=== PATIENT | male | born 1955 | race Caucasian/White ===

== ENCOUNTER 2023-02-24 10:04 | Observation (INO) | payer MEDICARE, OTHER ==
[2023-02-24] MEDS ORDERED: ONDANSETRON 4 MG/2 ML VIAL IVP STA (10:09)
[2023-02-24] MEDS ORDERED: DIPH,PERTUS(ACELL)TETVAC-LF 0.5 ML VIAL IM ONE (10:09)
[2023-02-24] MEDS ORDERED: SODIUM CHLORIDE 0.9% 500 ML 500 ML IV STA (10:09)
--- NOTE | 2023-02-24 10:18 | ED ---
General Adult HPI - General Stated complaint: Fall, on Thinner Time Seen by Provider: 02/24/23 10:04 Source: patient, RN notes reviewed, old records reviewed - History of Present Illness Initial comments: This is a 67-year-old male who presents emergency Department with a past medical history significant for seizures. Patient states he also had an aortic aneurysm repair at some point. Patient family told EMS that the patient was in his room and they heard a a loud bang at 7 AM they did not going to check on him however at 9:00 when he went in to check on them he was standing in the middle the room with a blanket around him and acting confused. They did notice a little bit of blood on the posterior left aspect of his head. Patient has slowly come around to the point where he is alert and oriented 4 at the scene he was alert and oriented 1. Patient also urinated on himself. Patient has no complaints at this time except for being cold. Patient is been nauseated and dry heaving on the way in per EMS. Patient to get [address] on the way in. - Related Data Home Medications Medication Instructions Recorded Confirmed LORazepam [Ativan] 0.5 mg PO TID PRN 12/13/14 12/13/14 Omeprazole [PriLOSEC] 10 mg PO AC-BRKFST 12/13/14 12/13/14 Zolpidem [Ambien] 5 mg PO HS PRN 12/13/14 12/13/14 lisinopriL [Zestril] 10 mg PO DAILY 12/13/14 12/13/14 Previous Rx's Medication Instructions Recorded Famotidine [Pepcid] 20 mg PO BID #30 tablet 12/13/14 hydrOXYzine HCL [Atarax] 25 mg PO TID PRN #30 tab 12/13/14 predniSONE 50 mg PO DAILY #5 tab 12/13/14 Allergies Allergy/AdvReac Type Severity Reaction Status Date / Time lisinopril Allergy Anaphylaxis Verified 12/13/14 11:34 Review of Systems ROS Statement: Those systems with pertinent positive or pertinent negative responses have been documented in the HPI. ROS Other: All systems not noted in ROS Statement are negative. Past Medical History Past Medical History: GERD/Reflux, Hypertension History of Any Multi-Drug Resistant Organisms: None Reported Past Surgical History: No Surgical Hx Reported Past Psychological History: Anxiety Past Alcohol Use History: Daily Past Drug Use History: Marijuana General Exam - General Exam Comments Initial Comments: GENERAL: Patient is well-developed and well-nourished. Patient is nontoxic and well- hydrated and is in mild distress. ENT: Neck is soft and supple. No significant lymphadenopathy is noted. Oropharynx is clear. Moist mucous membranes. Neck has full range of motion without eliciting any pain. EYES: The sclera were anicteric and conjunctiva were pink and moist. Extraocular movements were intact and pupils were equal round and reactive to light. Eyelids were unremarkable. PULMONARY: Unlabored respirations. Good breath sounds bilaterally. No audible rales rhonchi or wheezing was noted. CARDIOVASCULAR: There is a regular rate and rhythm without any murmurs gallops or rubs. ABDOMEN Soft and nontender with normal bowel sounds. SKIN: There is a 1 cm laceration of the left occipital region of the scalp NEUROLOGIC: Patient is alert and oriented x3. Cranial nerves II through XII are grossly intact. Motor and sensory are also intact. Normal speech, volume and content. Symmetrical smile. MUSCULOSKELETAL: Normal extremities with adequate strength and full range of motion. LYMPHATICS: No significant lymphadenopathy is noted PSYCHIATRIC: Normal psychiatric evaluation. Course Vital Signs 02/24/23 02/24/23 10:05 10:27 Temperature 98.8 F Pulse Rate 70 73 Respiratory 18 18 Rate Blood Pressure 138/75 124/52 O2 Sat by Pulse 93 L 93 L Oximetry Medical Decision Making - Medical Decision Making EKG was interpreted by myself EKG shows a sinus rhythm at 70 bpm MA interval 238 QRS is 90 QT interval 395 QTC is 4:15. Patient's EKG shows no ST segment elevation or depression. Was pt. sent in by a medical professional or institution (, PA, DISTRIBUTION MANAGER, urgent care, hospital, or shelter...) When possible be specific @ -No Did you speak to anyone other than the patient for history (EMS, parent, family, police, friend...)? What history was obtained from this source @ -EMS and gave all the history Did you review nursing and triage notes (agree or disagree)? Why? @ -I reviewed and agree with nursing and triage notes Were old charts reviewed (outside hosp., previous admission, EMS record, old EKG, old radiological studies, urgent care reports/EKG's, shelter records)? Report findings @ -No old charts were reviewed Differential Diagnosis (chest pain, altered mental status, abdominal pain women, abdominal pain men, vaginal bleeding, weakness, fever, dyspnea, syncope, headache, dizziness, GI bleed, back pain, seizure, CVA, palpatations, mental health, musculoskeletal)? @ -Differential Seizure: Recurrent seizure disorder, febrile seizure, alcohol withdrawal, stimulants, meningitis, encephalitis, intercranial hemorrhage, intracranial tumor, stroke, eclampsia, thyrotoxicosis, hypocalcemia, hyponatremia, hypernatremia, hypomagnesemia, psychogenic, this is not meant to be an all-inclusive list. EKG interpreted by me (3pts min.). @ -As above X-rays interpreted by me (1pt min.). @ -None done CT interpreted by me (1pt min.). @ -None done U/S interpreted by me (1pt. min.). @ -None done What testing was considered but not performed or refused? (CT, X-rays, U/S, labs)? Why? @ -None What meds were considered but not given or refused? Why? @ -None Did you discuss the management of the patient with other professionals (professionals i.e. , PA, DISTRIBUTION MANAGER, lab, RT, psych nurse, social insurance administrator, geoscience specialist, teacher, hospital admissions officer, caser up)? Give summary @ -I spoke with a [place] hospitalist and they agreed to admit the patient Was smoking cessation discussed for >3mins.? @ -No Was critical care preformed (if so, how long)? @ -No Were there social determinants of health that impacted care today? How? (Homelessness, low income, unemployed, alcoholism, drug addiction, tra nsportation, low edu. Level, literacy, decrease access to med. care, correction, rehab)? @ -No Was there de-escalation of care discussed even if they declined (Discuss DNR or withdrawal of care, Hospice)? DNR status @ -No What co-morbidities impacted this encounter? (DM, HTN, Smoking, COPD, CAD, Cancer, CVA, ARF, Chemo, Hep., AIDS, mental health diagnosis, sleep apnea, morbid obesity)? @ -None Was patient admitted / discharged? Hospital course, mention meds given and route, prescriptions, significant lab abnormalities, going to OR and other pertinent info. @ -Patient remained a little post ictal not quite back to his baseline per his and so was determined that we will keep the patient consult neurology and monitor the patient. Patient continued to be nauseous disease day. Patient did receive Zofran. Patient also received 1500 of Keppra. Patient is not going to be admitted as a trauma because when the showed up she indicated to us that he had a seizure though he did fall patient had no traumatic injury except for a little abrasion on the scalp. The reason for admission will be prolonged postictal state Undiagnosed new problem with uncertain prognosis? @ -No Drug Therapy requiring intensive monitoring for toxicity (Heparin, Nitro, Insulin, Cardizem)? @ -No Were any procedures done? @ -No Diagnosis/symptom? @ -Seizure Acute, or Chronic, or Acute on Chronic? @ -Acute Uncomplicated (without systemic symptoms) or Complicated (systemic symptoms)? @ -Complicated Side effects of treatment? @ -No Exacerbation, Progression, or Severe Exacerbation? @ -No Poses a threat to life or bodily function? How? (Chest pain, [place], [place], pneumonia, PE, COPD, DKA, ARF, appy, cholecystitis, CVA, Diverticulitis, Homicidal, Suicidal, threat to staff... and all critical care pts) @ -No Diagnosis/symptom? @ -Prolonged postictal Acute, or Chronic, or Acute on Chronic? @ -Acute Uncomplicated (without systemic symptoms) or Complicated (systemic symptoms)? @ -Complicated Side effects of treatment? @ -none Exacerbation, Progression, or Severe Exacerbation] @ -no Poses a threat to life or bodily function? @ -no - Lab Data Result diagrams: 02/24/23 10:42 02/24/23 10:42 Lab Results 02/24/23 02/24/23 02/24/23 Range/Units 10:15 10:21 10:42 WBC 17.1 H (3.8-10.6) k/uL RBC 4.32 (4.30-5.90) m/uL Hgb 14.0 (13.0-17.5) gm/dL Hct 41.7 (39.0-53.0) % MCV 96.7 (80.0-100.0) fL MCH 32.4 (25.0-35.0) pg MCHC 33.5 (31.0-37.0) g/dL RDW 14.3 (11.5-15.5) % Plt Count 217 (150-450) k/uL MPV 8.0 Neutrophils % 89 % Lymphocytes % 6 % Monocytes % 5 % Eosinophils % 0 % Basophils % 0 % Neutrophils # 15.1 H (1.3-7.7) k/uL Lymphocytes # 1.0 (1.0-4.8) k/uL Monocytes # 0.8 (0-1.0) k/uL Eosinophils # 0.0 (0-0.7) k/uL Basophils # 0.0 (0-0.2) k/uL PT (9.0-12.0) sec INR (<1.2) APTT (22.0-30.0) sec Sodium (137-145) mmol/L Potassium (3.5-5.1) mmol/L Chloride (98-107) mmol/L Carbon Dioxide (22-30) mmol/L Anion Gap mmol/L BUN (9-20) mg/dL Creatinine (0.66-1.25) mg/dL Est GFR (CKD-EPI)AfAm (>60 ml/min/1.73 sqM) Est GFR (CKD-EPI)NonAf (>60 ml/min/1.73 sqM) Glucose (74-99) mg/dL Calcium (8.4-10.2) mg/dL Total Bilirubin (0.2-1.3) mg/dL AST (17-59) U/L ALT (4-49) U/L Alkaline Phosphatase (38-126) U/L Troponin I (0.000-0.034) ng/mL Total Protein (6.3-8.2) g/dL Albumin (3.5-5.0) g/dL Serum Alcohol mg/dL Blood Type O Positive Blood Type Confirm O Positive Blood Type Recheck No Previous Record Bld Type Recheck Status CABO Indicated Antibody Screen NEGATIVE Spec Expiration Date 02/27/2023231402/24/23 02/24/23 02/24/23 Range/Units 10:42 10:42 10:42 WBC (3.8-10.6) k/uL RBC (4.30-5.90) m/uL Hgb (13.0-17.5) gm/dL Hct (39.0-53.0) % MCV (80.0-100.0) fL MCH (25.0-35.0) pg MCHC (31.0-37.0) g/dL RDW (11.5-15.5) % Plt Count (150-450) k/uL MPV Neutrophils % % Lymphocytes % % Monocytes % % Eosinophils % % Basophils % % Neutrophils # (1.3-7.7) k/uL Lymphocytes # (1.0-4.8) k/uL Monocytes # (0-1.0) k/uL Eosinophils # (0-0.7) k/uL Basophils # (0-0.2) k/uL PT 10.5 (9.0-12.0) sec INR 1.0 (<1.2) APTT 21.7 L (22.0-30.0) sec Sodium 142 (137-145) mmol/L Potassium 4.0 (3.5-5.1) mmol/L Chloride 106 (98-107) mmol/L Carbon Dioxide 18 L (22-30) mmol/L Anion Gap 18 mmol/L BUN 13 (9-20) mg/dL Creatinine 1.04 (0.66-1.25) mg/dL Est GFR (CKD-EPI)AfAm 87 (>60 ml/min/1.73 sqM) Est GFR (CKD-EPI)NonAf 75 (>60 ml/min/1.73 sqM) Glucose 163 H (74-99) mg/dL Calcium 9.0 (8.4-10.2) mg/dL Total Bilirubin 0.7 (0.2-1.3) mg/dL AST 33 (17-59) U/L ALT 33 (4-49) U/L Alkaline Phosphatase 103 (38-126) U/L Troponin I <0.012 (0.000-0.034) ng/mL Total Protein 8.0 (6.3-8.2) g/dL Albumin 4.6 (3.5-5.0) g/dL Serum Alcohol <10 mg/dL Blood Type Blood Type Confirm Blood Type Recheck Bld Type Recheck Status Antibody Screen Spec Expiration Date Disposition Clinical Impression: Seizure, Postictal state Disposition: ADMITTED IP TO THIS [facility] Time of Disposition: 13:11
--- NOTE | 2023-02-24 10:26 | XR ---
EXAMINATION TYPE: XR pelvis AP view DATE OF EXAM: 02/24/2023 10:18 AM INDICATION: Patient age:Male; 67 years old; Reason for study: Trauma; [facility]. COMPARISON: None TECHNIQUE: The pelvis was examined in a single projection. FINDINGS: There is no evidence of fracture or dislocation. There is no soft tissue abnormality. No a bnormal calcifications are present. Multilevel degenerative changes of the lower spine. IMPRESSION: No acute osseous pathology.
--- NOTE | 2023-02-24 10:26 | XR ---
EXAMINATION TYPE: XR chest 1V portable DATE OF EXAM: 02/24/2023 10:18 AM COMPARISON: None TECHNIQUE: XR chest 1V portable Portable AP radiograph of the chest. CLINICAL INDICATION:Male, 67 years old with history of trauma; FINDINGS: Lungs/Pleura: There is no evidence of pleural effusion, focal consolidation, or pneumothorax. Pulmonary vascularity: Unremarkable. Heart/mediastinum: Cardiomediastinal silhouette is enlarged. Musculoskeletal: No acute osseous pathology. Midline sternotomy wires are noted. IMPRESSION: 1. No acute cardiopulmonary disease/process. 2. Mild cardiomegaly.
[2023-02-24 10:49] LABS: Basophils % (A) 0 %; Eosinophils % (A) 0 %; HCT 41.7 % (39.0-53.0); Lymphocytes % (A) 6 %; MCH 32.4 pg (25.0-35.0); MCHC 33.5 g/dL (31.0-37.0); MCV 96.7 fL (80.0-100.0); Monocytes # (A) 0.8 k/uL (0-1.0); Monocytes % (A) 5 %; Neutrophils # (A) 15.1 k/uL (1.3-7.7); Neutrophils % (A) 89 %; Platelet Count 217 k/uL (150-450); RBC 4.32 m/uL (4.30-5.90); RDW 14.3 % (11.5-15.5); WBC 17.1 k/uL (3.8-10.6)
--- NOTE | 2023-02-24 11:00 | CT ---
EXAMINATION TYPE: CT brain cspine wo con CT DLP: 1647.6 mGycm, Automated exposure control for dose reduction was used. DATE OF EXAM: 02/24/2023 10:43 AM COMPARISON: None.. CLINICAL INDICATION:Male, 67 years old with history of trauma; Fall on blood thinners. TECHNIQUE: Brain: Multiple axial CT images of the brain were obtained without IV contrast. Cspine: Axial CT images from the skull base to the inferior aspect of T2 we obtained without intraven ous contrast. Coronal and sagittal reformatted images were also reviewed. FINDINGS: Brain: Extra-axial spaces: No abnormal extra-axial fluid collections. Ventricular system: Within normal limits Cerebral parenchyma: No acute intraparenchymal hemorrhage or mass effect. The lyon-white junction is well differentiated. Cerebellum: Unremarkable. Mass effect: No evidence of midline shift. Intracranial vasculature: Atherosclerotic calcifications of the intracranial vessels. Soft tissues: Normal. Calvarium/osseous structures: No depressed skull fracture. Paranasal sinuses and mastoid air cells: Clear. Visualized orbits: Orbital contents are intact. Cervical spine: Fracture: None. Osseous structures: Multilevel degenerative disc disease changes with endplate spurring and disc oste ophyte complex's. Mediastinal wires. Multilevel facet arthropathy. Vertebral alignment: Grade 1 anterolisthesis of C3 on C4 and C4 on C5. Spinal canal/Neural Foramina: Disc osteophyte complexes at C4-C5, C5-C6, C6-C7, C7-T1 with at least m ild spinal canal stenosis. Facet joint uncovertebral joint arthropathy scattered throughout the cervi dia spine with varying degrees of neural foraminal stenosis. Neck soft tissues: Prevertebral soft tissues are within normal limits. Other: The airway is patent. The lung apices are clear. Surgical clips within the right supraclavicul ar region. IMPRESSION: 1. No acute intracranial process. 2. No evidence of cervical spine fracture. 3. Mild multilevel degenerative disc disease.
[2023-02-24 11:01] LABS: AST 33 U/L (17-59); African American GFR (CKD) 87 (>60 ml/min/1.73 sqM); Albumin 4.6 g/dL (3.5-5.0); Alcohol <10 mg/dL; Alkaline Phosphatase 103 U/L (38-126); Anion Gap 18 mmol/L; Blood Urea Nitrogen 13 mg/dL (9-20); Carbon Dioxide 18 mmol/L (22-30); Chloride 106 mmol/L (98-107); Glucose 163 mg/dL (74-99); Non-African American GFR(CKD) 75 (>60 ml/min/1.73 sqM); Sodium 142 mmol/L (137-145); Total Bilirubin 0.7 mg/dL (0.2-1.3)
[2023-02-24 11:08] LABS: Prothrombin Time 10.5 sec (9.0-12.0)
[2023-02-24 11:11] LABS: ALT 33 U/L (4-49)
[2023-02-24 11:19] LABS: Partial Thromboplastin Time 21.7 sec (22.0-30.0)
[2023-02-24] MEDS ORDERED: levETIRAcetam IV 1,500 MG in SODIUM CHLORIDE 0.9% 250 ML IVPB ONE (11:36)
[2023-02-24] MEDS ORDERED: levETIRAcetam IV 500 MG/5 ML VIAL IVP STA (11:47)
[2023-02-24] MEDS ORDERED: SODIUM CHLORIDE 0.9% 1,000 ML IV ONE (13:13)
[2023-02-24] MEDS ORDERED: ACETAMINOPHEN TAB 325 MG TAB PO PRN (14:44)
[2023-02-24] MEDS ORDERED: ONDANSETRON 4 MG/2 ML VIAL IVP PRN (14:44)
--- NOTE | 2023-02-24 14:46 | P.HPIM ---
History of Present Illness H&P Date: 02/24/23 History of present illness; patient is a 67-year-old gentleman with past medical history significant for coronary artery disease, seizures, aortic aneurysm repair was brought to the ER for confusion with possible seizure. Patient is a resident of [place], who is visiting [place]. According to family they heard a loud bang this morning coming from patient's room, they initially did not go to check on the patient, and later when they went to check on him and he was standing in the middle of room acting confused. There was evidence of urinary incontinence, no evidence of any tongue biting. Patient was his complaint of being cold, because of possible seizure, patient was brought to the ER. By that time patient came to the ER his confusion improved and he was acting more is normal self Initial lab work done in the ER showed WBC 17.1, hemoglobin 14, platelet count 217, sodium 142, potassium 4, BUN 13, creatinine 1.04, glucose 163 CT head done showed no acute intracranial process CT cervical spine done showed no acute cervical spine fracture Pelvis x-ray showed no acute osseous pathology Chest x-ray done in the ER showed no acute cardiac process Patient Admitted to medicine service REVIEW OF SYSTEMS: CONSTITUTIONAL: No fever, no malaise, no fatigue. HEENT: No recent visual problems or hearing problems. Denied any sore throat. CARDIOVASCULAR: No chest pain, orthopnea, PND, no palpitations, no syncope. PULMONARY: No shortness of breath, no cough, no hemoptysis. GASTROINTESTINAL: No diarrhea, no nausea, no vomiting, no abdominal pain. NEUROLOGICAL: As mentioned in HPI HEMATOLOGICAL: Denies any bleeding or petechiae. GENITOURINARY: Denies any burning micturition, frequency, or urgency. MUSCULOSKELETAL/RHEUMATOLOGICAL: Denies any joint pain, swelling, or any muscle pain. ENDOCRINE: Denies any polyuria or polydipsia. The rest of the 14-point review of systems is negative. PHYSICAL EXAMINATION: GENERAL: The patient is alert and oriented x3, not in any acute distress. Well developed, well nourished. HEENT: Pupils are round and equally reacting to light. EOMI. No scleral icterus. No conjunctival pallor. Normocephalic, atraumatic. No pharyngeal erythema. No thyromegaly. CARDIOVASCULAR: S1 and S2 present. No murmurs, rubs, or gallops. PULMONARY: Chest is clear to auscultation, no wheezing or crackles. ABDOMEN: Soft, nontender, nondistended, normoactive bowel sounds. No palpable organomegaly. MUSCULOSKELETAL: No joint swelling or deformity. EXTREMITIES: No cyanosis, clubbing, or pedal edema. NEUROLOGICAL: Gross neurological examination did not reveal any focal deficits. SKIN: No rashes. Assessment and plan Seizures Acute metabolic encephalopathy History of coronary artery disease History of aortic aneurysm repair Hypertension Hyperlipidemia Monitor vital signs Monitor CBC Monitor CMP Continue telemetry monitoring Seizure precautions Aspiration precautions Ordered EEG Patient received 1500 mg of IV Keppra in the ER Neurology consulted Labs and medication were reviewed.. Continue same treatment. Continue with s ymptomatic treatment. Resume home medication. Monitor labs and vitals. DVT and GI prophylaxis. Further recommendations as per clinical course of the patient Dictation was produced using [employer] dictation software. please excuse any grammatical, word or spelling errors. Past Medical History Past Medical History: GERD/Reflux, Hypertension Additional Past Medical History / Comment(s): AAA History of Any Multi-Drug Resistant Organisms: None Reported Past Surgical History: No Surgical Hx Reported Past Psychological History: Anxiety Past Alcohol Use History: Daily Past Drug Use History: Marijuana Medications and Allergies Home Medications Medication Instructions Recorded Confirmed Type ARIPiprazole [Abilify] 2.5 mg PO DAILY 02/24/23 02/24/23 History Aspirin [Adult Low Dose Aspirin EC] 81 mg PO DAILY 02/24/23 02/24/23 History Atorvastatin [Lipitor] 40 mg PO DAILY 02/24/23 02/24/23 History Candesartan Cilexetil [Atacand] 8 mg PO DAILY 02/24/23 02/24/23 History Clopidogrel [Plavix] 75 mg PO HS 02/24/23 02/24/23 History Escitalopram Oxalate [Lexapro] 10 mg PO DAILY 02/24/23 02/24/23 History Metoprolol Succinate [Toprol XL] 100 mg PO BID 02/24/23 02/24/23 History Omeprazole [PriLOSEC] 20 mg PO DAILY 02/24/23 02/24/23 History amLODIPine [Norvasc] 10 mg PO DAILY 02/24/23 02/24/23 History levETIRAcetam [Keppra] 750 mg PO BID 02/24/23 02/24/23 History Allergies Allergy/AdvReac Type Severity Reaction Status Date / Time lisinopril Allergy Anaphylaxis Verified 02/24/23 14:24 Physical Exam Vitals: Vital Signs Temp Pulse Resp BP Pulse Ox 02/24/23 10:27 73 18 124/52 93 L 02/24/23 10:05 98.8 F 70 18 138/75 93 L Intake and Output 02/23/23 02/24/23 02/24/23 22:59 06:59 14:59 Other: Weight 72.575 kg Results CBC & Chem 7: 02/24/23 10:42 02/24/23 10:42 Labs: Abnormal Lab Results - Last 24 Hours (Table) 02/24/23 02/24/23 02/24/23 Range/Units 10:42 10:42 10:42 WBC 17.1 H (3.8-10.6) k/uL Neutrophils # 15.1 H (1.3-7.7) k/uL APTT 21.7 L (22.0-30.0) sec Carbon Dioxide 18 L (22-30) mmol/L Glucose 163 H (74-99) mg/dL
[2023-02-24 16:21] LABS: Appearance,Urine Clear (Clear); Bilirubin,Urine Negative (Negative); Blood,Urine Small (Negative); Color,Urine Yellow; Glucose,Urine (UA) Negative (Negative); Ketones,Urine Trace (Negative); Leukocyte Esterase,Urine Negative (Negative); Mucus,Urine Rare /hpf; Nitrite,Urine Negative (Negative); Protein,Urine Trace (Negative); RBC,Urine 1 /hpf (0-5); Specific Gravity,Urine 1.016 (1.001-1.035); Urobilinogen,Urine <2.0 mg/dL (<2.0); WBC,Urine 1 /hpf (0-5)
[2023-02-24 16:47] LABS: Amphetamine Screen,Urine Not Detected (NotDetected); Barbiturate Screen,Urine Not Detected (NotDetected); Benzodiazepines Screen,Urine Not Detected (NotDetected); Cocaine Screen,Urine Not Detected (NotDetected); Methadone Screen, Urine Not Detected (NotDetected); Opiate Screen,Urine Not Detected (NotDetected); Oxycodone Screen, Urine Not Detected (NotDetected); Phencyclidine Screen,Urine Not Detected (NotDetected); Tricyclic Antidepressant,Urine Not Detected (NotDetected); Urn Cannabinoid Scrn Detected (NotDetected)
[2023-02-24] MEDS: METOPROLOL SUCCINATE (ER) 100 MG TAB.ER.24H PO SCH (20:32)
[2023-02-24] MEDS ORDERED: CLOPIDOGREL 75 MG TAB PO SCH (21:00)
[2023-02-25 07:48] VITALS: BP 119/70; PULSE 50; RESP 17; TEMP 98.4
[2023-02-25] MEDS: METOPROLOL SUCCINATE (ER) 100 MG TAB.ER.24H PO SCH (08:03)
[2023-02-25] MEDS ORDERED: ASPIRIN 81 MG PO SCH (09:00)
[2023-02-25] MEDS ORDERED: ESCITALOPRAM 10 MG TAB PO SCH (09:00)
[2023-02-25] MEDS ORDERED: amLODIPine 10 MG TAB PO SCH (09:00)
[2023-02-25] MEDS ORDERED: levETIRAcetam 500 MG TAB PO SCH (09:00)
[2023-02-25] MEDS ORDERED: LOSARTAN 50 MG TAB PO SCH (09:00)
[2023-02-25] MEDS ORDERED: ARIPiprazole 5 MG TAB PO SCH (09:00)
[2023-02-25] MEDS ORDERED: PANTOPRAZOLE 40 MG TABLET PO SCH (09:00)
[2023-02-25] MEDS ORDERED: ATORVASTATIN 40 MG TAB PO SCH (09:00)
--- NOTE | 2023-02-25 09:07 | P.CNNES ---
History of Present Illness Consult date: 02/24/23 Requesting physician: Jac Richards Reason for Consult: Seizure History of Present Illness: Patient is a 67-year-old male came to the hospital by ambulance today at 10:04 AM for a seizure. As per EMS flow sheet when they arrived for the patient who was involved in a fall, not completely alert. When they arrived patient was found sitting on edge of the upstairs bed. Patient's mentioned that she heard a side that sounded like a fall around 7 AM, but did not check on her . Patient's mentioned that she checked on the patient and later and found him standing in the middle of the room with a blanket wrapped around himself not acting right. Patient's GCS at that time was 14 with mild dyspnea and respiration rate 22. Saturation was 90% on room air. Lungs are clear. Patient was placed on nasal cannula at 6 L per minute. Patient did not know the day, the month and the year where he was or who the president was. 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 Pupils are equal. Patient had a half inch laceration to the posterior left side of his head that was not bleeding. Patient had minor swelling around his left eye. Patient denied any neck or back pain. Patient's vitals at the scene was blood pressure 173/70, pulse rate 70, respiration 20 and blood glucose 262. Patient was brought to the hospital and his vitals on arrival 138/75. Temperature 99.7. Blood test shows a WBC 17.1, hemoglobin 14.0, platelets are 2 and 17. PT/PTT normal, Chem-20 normal. Troponin negative, UA negative, urine drug screen posit arlene for marijuana. Blood alcohol level negative. Coronal virus PCR negative. Pelvic x-ray showed no acute osseous pathology, chest x-ray no acute cardio per report is with mild cardiomegaly. CT of the head showed no acute intracranial process. No evidence of cervical spine fracture. Mild multilevel degenerative disc disease. EKG shows sinus rhythm. I personally reviewed computed tomography scan of the head and appears normal. No mass. Patient tells me that he had history of a seizure about 6 months ago when he was admitted to [facility] [place]. He was started on Keppra 750 mg twice a day. He has been following up with a neurologist outpatient, but he does not remember the name. He suspect this was a second seizure in his lifetime. He says that he did bite his tongue and lost control of urine with this seizure. Patient denies any tobacco use, alcohol use or any drugs. He does smoke marijuana. Denies any history of childhood seizures, any history of concussions or family history of epilepsy. Review of Systems Constitutional: Reports fever (earlier today), Denies chills Eyes: denies blurred vision, denies diplopia, denies pain Ears: bilateral: decreased hearing, deny: earache Ears, nose, mouth and throat: Denies headache, Denies sore throat Cardiovascular: Denies chest pain, Denies shortness of breath Respiratory: Denies cough, Denies excessive sputum Gastrointestinal: Denies abdominal pain, Denies diarrhea, Denies nausea, Denies vomiting Musculoskeletal: Denies low back pain, Denies myalgias, Denies neck pain Integumentary: Denies pruritus, Denies rash Neurological: Reports as per HPI Psychiatric: Reports anxiety, Denies depression Endocrine: Reports fatigue, Denies weight change Hematologic/Lymphatic: Reports easy bleeding, Reports easy bruising Past Medical History Past Medical History: GERD/Reflux, Hypertension Additional Past Medical History / Comment(s): AAA History of Any Multi-Drug Resistant Organisms: None Reported Past Surgical History: No Surgical Hx Reported Past Psychological History: Anxiety Smoking Status: Current every day smoker Past Alcohol Use History: Daily Past Drug Use History: Marijuana Medications and Allergies Home Medications Medication Instructions Recorded Confirmed Type ARIPiprazole [Abilify] 2.5 mg PO DAILY 02/24/23 02/24/23 History Aspirin [Adult Low Dose Aspirin EC] 81 mg PO DAILY 02/24/23 02/24/23 History Atorvastatin [Lipitor] 40 mg PO DAILY 02/24/23 02/24/23 History Candesartan Cilexetil [Atacand] 8 mg PO DAILY 02/24/23 02/24/23 History Clopidogrel [Plavix] 75 mg PO HS 02/24/23 02/24/23 History Escitalopram Oxalate [Lexapro] 10 mg PO DAILY 02/24/23 02/24/23 History Metoprolol Succinate [Toprol XL] 100 mg PO BID 02/24/23 02/24/23 History Omeprazole [PriLOSEC] 20 mg PO DAILY 02/24/23 02/24/23 History amLODIPine [Norvasc] 10 mg PO DAILY 02/24/23 02/24/23 History levETIRAcetam [Keppra] 750 mg PO BID 02/24/23 02/24/23 History Allergies Allergy/AdvReac Type Severity Reaction Status Date / Time lisinopril Allergy Anaphylaxis Verified 02/24/23 14:24 Physical Examination - Vital Signs Vital Signs: Vital Signs Temp Pulse Pulse Resp BP BP Pulse Ox 02/24/23 19:43 98.1 F 66 16 143/75 95 02/24/23 15:36 99.7 F H 71 16 136/76 97 02/24/23 10:27 73 18 124/52 93 L 02/24/23 10:05 98.8 F 70 18 138/75 93 L Intake and Output 02/24/23 02/24/23 02/24/23 06:59 14:59 22:59 Intake Total 118 Balance 118 Intake: Oral 118 Other: Weight 72.575 kg 72.575 kg Patient is an elderly male, very pleasant in no acute distress. Patient is alert awake oriented to time place and person. Speech and language functions are normal. Patient can name and repeat very well. No aphasia or dysarthria. Attention, concentration and fund of knowledge is adequate. On cranial nerve examination, pupils are equal, round and reacting to light, visual lara are full on confrontation, with no neglect on double simultaneous stimulation. Extraocular muscles are intact with no nystagmus. Face is symmetric, tongue protrudes to the midline. Palatal elevation and sensation normal, hearing and shoulder shrug normal, facial sensation normal. Patient has evidence of significant tongue laceration on the right side from seizure. On muscle strength testing, there is no pronator drift and the strength is normal in arms and legs distally and proximally. Deep tendon reflexes are symmetric 1+ to 2 at bilateral biceps and brachioradialis, 2 at the knees and ankles and plantars downgoing. Sensory to touch is equal with no neglect on double simultaneous stimulation. Cerebellar function showed no ataxia for [id number] testing. No dysdiadochokinesia. No ataxia for [id number] testing on either side. Tone and bulk of muscles normal. Gait deferred.. On general examination, there is no carotid bruit or murmur, S1-S2 audible. Chest is clear on consultation. Abdomen is soft nontender. No organomegaly, bowel sounds present. Peripheral pulses are present. No edema. Results - Laboratory Findings CBC and BMP: 02/25/23 08:14 02/25/23 08:14 Abnormal Lab Findings: Abnormal Labs 02/24/23 02/24/23 02/24/23 10:42 10:42 10:42 WBC 17.1 H Neutrophils # 15.1 H APTT 21.7 L Carbon Dioxide 18 L Glucose 163 H Urine Protein Urine Ketones Urine Blood Urine Mucus U Marijuana (THC) Screen 02/24/23 02/24/23 15:54 15:54 WBC Neutrophils # APTT Carbon Dioxide Glucose Urine Protein Trace H Urine Ketones Trace H Urine Blood Small H Urine Mucus Rare H U Marijuana (THC) Screen Detected H Assessment and Plan Assessment: * Seizure disorder, presented with a breakthrough seizure. Patient's first seizure was 6 months ago and now presenting with a second seizure. * Marijuana use * Hypertension * Hyperlipidemia Plan: * Patient was taking Keppra 750 mg twice a day. With this breakthrough seizure, we will increase dose to 1000 mg twice a day. * EEG has been ordered by PCP. * I tried to call patient's to obtain collateral history, but she was not available. We will try to contact her in the morning. * Patient informed of [place] state law of no driving unless seizure free for 6 months, climbing ladders, operating dangerous machinery or unsupervised swimming. * Recommend patient follow with his neurologist outpatient in 1 week. * Neurology will follow. Thank you for the consult.
[2023-02-25 09:09] LABS: Basophils % (A) 0 %; Eosinophils % (A) 0 %; HCT 36.7 % (39.0-53.0); HGB 12.2 gm/dL (13.0-17.5); Lymphocytes # (A) 1.3 k/uL (1.0-4.8); Lymphocytes % (A) 13 %; MCH 31.6 pg (25.0-35.0); MCHC 33.2 g/dL (31.0-37.0); MCV 95.2 fL (80.0-100.0); Mean Platelet Volume 7.9; Monocytes # (A) 0.7 k/uL (0-1.0); Monocytes % (A) 7 %; Neutrophils # (A) 8.2 k/uL (1.3-7.7); Neutrophils % (A) 79 %; Platelet Count 176 k/uL (150-450); RBC 3.85 m/uL (4.30-5.90); RDW 14.6 % (11.5-15.5); WBC 10.4 k/uL (3.8-10.6)
[2023-02-25 10:24] LABS: ALT 18 U/L (4-49); AST 26 U/L (17-59); African American GFR (CKD) >90 (>60 ml/min/1.73 sqM); Albumin 3.7 g/dL (3.5-5.0); Albumin/Globulin Ratio 1.3; Alkaline Phosphatase 86 U/L (38-126); Anion Gap 6 mmol/L; Blood Urea Nitrogen 17 mg/dL (9-20); Calcium 8.5 mg/dL (8.4-10.2); Carbon Dioxide 24 mmol/L (22-30); Chloride 108 mmol/L (98-107); Globulin 2.9 g/dL; Glucose 101 mg/dL (74-99); Non-African American GFR(CKD) 83 (>60 ml/min/1.73 sqM); Potassium 3.6 mmol/L (3.5-5.1); Sodium 138 mmol/L (137-145); Total Bilirubin 1.1 mg/dL (0.2-1.3); Total Protein 6.6 g/dL (6.3-8.2)
--- NOTE | 2023-02-25 10:36 | CT ---
EXAMINATION TYPE: CT angio chest CT DLP: 430.4 mGycm, Automated exposure control for dose reduction was used. DATE OF EXAM: 02/25/2023 10:27 AM COMPARISON: Chest radiograph 02/24/2023 CLINICAL INDICATION:Male, 67 years old with history of elevated D-Dimer; chest pain TECHNIQUE/CONTRAST: CTA scan of the thorax is performed with IV Contrast, patient injected with 60 mL of Isovue 370, pulm onary embolism protocol. MIP images are created and reviewed. FINDINGS: Pulmonary Artery: There is no evidence for a filling defect within the pulmonary vasculature to sugge st acute pulmonary embolism. The pulmonary artery is of normal size. Lungs/Pleura: No evidence of focal consolidation, pleural effusion or pneumothorax. Airway: There is some wall thickening versus secretion of the proximal trachea along the anterior and left lateral aspect. Heart: Heart is within normal limits for size.. No pericardial effusion. Moderate coronary arterial c alcifications Vasculature: No evidence of aortic aneurysm. Ectasia of the aortic root measuring up to 3.9 cm. Ectas ia of the descending thoracic aorta measuring up to 3.6 cm. Atherosclerotic calcification of the aort a and its branches Mediastinum: No evidence of adenopathy. Musculoskeletal: No acute osseous abnormalities. Median sternotomy wires. Prominent Schmorl's nodes i nvolving the superior endplate of the T8, T9, T11 vertebral bodies. Soft Tissues: Unremarkable. Lower neck: No significant findings. Upper Abdomen: Renal cyst measuring up to 8.2 cm with thin peripheral calcification consistent with a Bosniak 2 cyst. Subcentimeter hypodense focus within the left hepatic lobe which is too small to shari racterize, likely cyst. IMPRESSION: 1. No evidence of pulmonary embolism. 2. Mild wall thickening versus secretions involving the proximal trachea. Consider further evaluation with direct visualization as clinically indicated. 3. Ectasia of the aortic root and ascending thoracic aorta.
--- NOTE | 2023-02-25 12:22 | P.GSCN ---
History of Present Illness Consult date: 02/25/23 Reason for Consult: Suspected fall, breakthrough seizure, history of antiplatelet medication with Plavix History of present illness: Patient is a 67-year-old gentleman, visiting the area from [place], brought to [facility] emergency department 02/24/2023 after suffering a suspected fall and breakthrough seizure. Apparently he had his first seizure within the past year or 2, was started on Keppra routine. The family he was s taying with reportedly heard some manner of loud noise overnight, initially thought nothing of it, and when they and checked on the patient and the morning I found him standing in the bedroom, confused, incontinent of urine, there is suspicion he may have bitten his tongue. He was brought to the emergency department found to be in a state of post ictal confusion. He received of a Loading dose, was admitted to the medical service, neurology was consulted. He has history of antiplatelet medication with aspirin and Plavix, apparently of at some point over the past 2 years or so he suffered with a thoracic aortic aneurysm necessitating urgent open replacement which was performed at the [facility]. He has done well in that respect thereafter. He also has a relatively remote history of resection for colon cancer. Patient has had a hemodynamically stable and afebrile appearance since presentation. CBC shows a mild absolute anemia with hemoglobin of 12.2, white blood cell count 10.4, platelet count 176. Conference of metabolic panel was normal and all counts including normal liver function studies and normal TSH. Urinalysis showed trace blood, trace ketones. Urine drug screen was positive for marijuana. CT angiogram of the chest was obtained, images and official report were reviewed. His aortic graft looks to be in good condition, Ms. no evidence of pneumothorax, hemothorax, rib fracture or thoracic spinal fracture. Nearly the entire liver and spleen are easily visualized on the upper abdominal films showing no evidence of injury, no free air, no free fluid. There is a large, intact left renal cyst. Patient has no complaints at time of my evaluation, is alert and oriented 3, GCS is 15. He has no complaints of pain whatsoever. He starting develop some mild ecchymosis about the left eye. Review of Systems All systems: negative Past Medical History Past Medical History: GERD/Reflux, Hypertension Additional Past Medical History / Comment(s): AAA History of Any Multi-Drug Resistant Organisms: None Reported Past Surgical History: No Surgical Hx Reported Past Psychological History: Anxiety Smoking Status: Current every day smoker Past Alcohol Use History: Daily Past Drug Use History: Marijuana Medications and Allergies Home Medications Medication Instructions Recorded Confirmed Type ARIPiprazole [Abilify] 2.5 mg PO DAILY 02/24/23 02/24/23 History Aspirin [Adult Low Dose Aspirin EC] 81 mg PO DAILY 02/24/23 02/24/23 History Atorvastatin [Lipitor] 40 mg PO DAILY 02/24/23 02/24/23 History Candesartan Cilexetil [Atacand] 8 mg PO DAILY 02/24/23 02/24/23 History Clopidogrel [Plavix] 75 mg PO HS 02/24/23 02/24/23 History Escitalopram Oxalate [Lexapro] 10 mg PO DAILY 02/24/23 02/24/23 History Metoprolol Succinate [Toprol XL] 100 mg PO BID 02/24/23 02/24/23 History Omeprazole [PriLOSEC] 20 mg PO DAILY 02/24/23 02/24/23 History amLODIPine [Norvasc] 10 mg PO DAILY 02/24/23 02/24/23 History levETIRAcetam [Keppra] 750 mg PO BID 02/24/23 02/24/23 History Allergies Allergy/AdvReac Type Severity Reaction Status Date / Time lisinopril Allergy Anaphylaxis Verified 02/24/23 14:24 Surgical - Exam Osteopathic Statement: *. No significant issues noted on an osteopathic structural exam other than those noted in the History and Physical/Consult. Vital Signs Temp Pulse Resp BP Pulse Ox 98.8 F 70 18 138/75 93 L 02/24/23 10:05 02/24/23 10:05 02/24/23 10:05 02/24/23 10:05 02/24/23 10:05 - General well developed, well nourished, no distress, no pain - Eyes Mild ecchymosis developing about the left eye without significant tenderness. Extraocular motions are intact, no vision deficits appreciated. PERRL, normal ocular movement - ENT normal pinna, normal nares, normal mucosa, no hearing loss - Neck Full and painless active range of cervical motion. No midline or paraspinal tenderness. trachea midline - Respiratory normal expansion, normal respiratory effort, clear to auscultation - Cardiovascular Rhythm: regular - Abdomen Abdomen soft, nontender to palpation, no guarding rebound or distention. Pelvis is stable. No abdominal ecchymoses or contusions. Abdomen: soft, non tender Hernia: none - Integumentary There is a 1 cm so superficial abrasion of the left parietal scalp without evidence of bleeding, no full thickness laceration. No oral or dental trauma appreciated. no rash, no growths, no abnormal pigmentation - Neurologic GCS 15, moves all extremities on command, no focal deficits, alert and oriented 3. normal coordination, normal sensation - Musculoskeletal Muscle compartments soft, painless passive range of motion with respect to upper and lower extremities, no hip tenderness, no lower extremity asymmetry, deformity, or rotation. No flank ecchymoses, no midline or paraspinal tenderness to palpation over the thoracic or lumbar spine. - Psychiatric oriented to time, oriented to person, oriented to place, speech is normal Results - Labs 02/25/23 08:14 02/25/23 08:14 Abnormal Lab Results - Last 24 Hours (Table) 02/24/23 02/24/23 02/25/23 Range/Units 15:54 15:54 08:14 RBC 3.85 L (4.30-5.90) m/uL Hgb 12.2 L (13.0-17.5) gm/dL Hct 36.7 L (39.0-53.0) % Neutrophils # 8.2 H (1.3-7.7) k/uL D-Dimer (<0.60) mg/L FEU Chloride (98-107) mmol/L Glucose (74-99) mg/dL Urine Protein Trace H (Negative) Urine Ketones Trace H (Negative) Urine Blood Small H (Negative) Urine Mucus Rare H (None) /hpf U Marijuana (THC) Screen Detected H (NotDetected) 02/25/23 02/25/23 Range/Units 08:14 08:14 RBC (4.30-5.90) m/uL Hgb (13.0-17.5) gm/dL Hct (39.0-53.0) % Neutrophils # (1.3-7.7) k/uL D-Dimer 1.24 H (<0.60) mg/L FEU Chloride 108 H (98-107) mmol/L Glucose 101 H (74-99) mg/dL Urine Protein (Negative) Urine Ketones (Negative) Urine Blood (Negative) Urine Mucus (None) /hpf U Marijuana (THC) Screen (NotDetected) Diabetes panel 02/25/23 Range/Units 08:14 Sodium 138 (137-145) mmol/L Potassium 3.6 (3.5-5.1) mmol/L Chloride 108 H (98-107) mmol/L Carbon Dioxide 24 (22-30) mmol/L BUN 17 (9-20) mg/dL Creatinine 0.96 (0.66-1.25) mg/dL Glucose 101 H (74-99) mg/dL Calcium 8.5 (8.4-10.2) mg/dL AST 26 (17-59) U/L ALT 18 (4-49) U/L Alkaline Phosphatase 86 (38-126) U/L Total Protein 6.6 (6.3-8.2) g/dL Albumin 3.7 (3.5-5.0) g/dL Thyroid panel 02/25/23 Range/Units 08:14 TSH 0.779 (0.465-4.680) mIU/L Calcium panel 02/25/23 Range/Units 08:14 Calcium 8.5 (8.4-10.2) mg/dL Albumin 3.7 (3.5-5.0) g/dL Pituitary panel 02/25/23 Range/Units 08:14 Sodium 138 (137-145) mmol/L Potassium 3.6 (3.5-5.1) mmol/L Chloride 108 H (98-107) mmol/L Carbon Dioxide 24 (22-30) mmol/L BUN 17 (9-20) mg/dL Creatinine 0.96 (0.66-1.25) mg/dL Glucose 101 H (74-99) mg/dL Calcium 8.5 (8.4-10.2) mg/dL TSH 0.779 (0.465-4.680) mIU/L Adrenal panel 02/25/23 Range/Units 08:14 Sodium 138 (137-145) mmol/L Potassium 3.6 (3.5-5.1) mmol/L Chloride 108 H (98-107) mmol/L Carbon Dioxide 24 (22-30) mmol/L BUN 17 (9-20) mg/dL Creatinine 0.96 (0.66-1.25) mg/dL Glucose 101 H (74-99) mg/dL Calcium 8.5 (8.4-10.2) mg/dL Total Bilirubin 1.1 (0.2-1.3) mg/dL AST 26 (17-59) U/L ALT 18 (4-49) U/L Alkaline Phosphatase 86 (38-126) U/L Total Protein 6.6 (6.3-8.2) g/dL Albumin 3.7 (3.5-5.0) g/dL - Imaging CT scan - chest: report reviewed, image reviewed Assessment and Plan Assessment: 67-year-old gentleman with breakthrough seizure, arrived in post ictal state, suspicion of a fall. GCS approximately 24 hours post initial presentation at time of my assessment is 15, no focal deficits, alert and oriented 3. Mild ecchymosis of the left eye, extraocular motions are intact, no significant tenderness. 1 cm superficial abrasion a left buttock posterior parietal scalp without subcutaneous hematoma. No evidence of thoracic spine injury, rib fracture, pneumothorax, pulmonary contusion, hemothorax, liver or spleen injury on CT angiogram of the chest. Large left renal cyst without sign of acute trauma. History of antiplatelet medication with aspirin and Plavix, previous thoracic aorta replacement. Plan: Would recommend a computed tomography scan of the head if the patient shows decline in GCS or any manner of neurologic decline. No evidence of significant traumatic injury seen on exam or available imaging. Abdominal exam is benign. He has a minor scrape of the left posterior parietal scalp without subcutaneous hematoma and a mild developing ecchymosis of the left eye without significant tenderness. He's been observed now for a little over 24 hours without evidence of further neurologic issues. From a surgical standpoint he likely okay for discharge with outpatient follow-up closer to home. I'm told EEG is pending and will be available until tomorrow. His Keppra dose has been adjusted by our neurology sap security consultant, no was reviewed and appreciated. I reiterated that the patient is not to drive until he is been free of seizures for 6 months. Time with Patient: Greater than 30
--- NOTE | 2023-02-25 12:40 | P.PN ---
Subjective Progress Note Date: 02/25/23 Patient was seen for a follow-up. Patient is doing well. No further seizures reported. Spoke to patient's as well. She mentioned that patient's first seizure was on 12/19/2021. He was evaluated by Dr. Rj Yates, neurologist, who started him on Keppra 1000 mg twice a day. After 6 months, as he was seizure-free, the dose was decreased to 750 mg twice a day. Patient since then had 1 more episode in which she was slightly confused but the dose was not changed. Now patient has this probable third seizure that he presented with. Patient's mentioned that patient had MRI of the brain performed after his first seizure at [place]. No need to repeat MRI at this time. Patient also has history of stage I colon cancer, that was diagnosed after he underwent uroscopy for diverticulitis. It was stage I cancer, that was removed. No need for chemotherapy. Patient also has history of aortic aneurysm repair on 05/21/2021 after which he has been on aspirin and Plavix. Patient has an ozzie ointment with his cardiothoracic surgeon in May [address] [facility]. Patient and his actually lives in [place], but they were here for a wedding. Objective - Vital Signs Vital signs: Vital Signs Temp 98.4 F 02/25/23 07:11 Pulse 50 L 02/25/23 07:11 Resp 17 02/25/23 07:11 BP 119/70 02/25/23 07:11 Pulse Ox 94 L 02/25/23 09:23 FiO2 Intake & Output 02/24/23 02/25/23 02/25/23 18:59 06:59 18:59 Intake Total 118 Balance 118 Weight 72.575 kg Intake: Oral 118 Other: # Voids 1 - Exam Mental status, speech and language functions and gait is normal. Examination normal. Patient does have evidence of significant tenderness respiration. Some swelling of the left eye. Examination otherwise nonfocal. - Labs CBC & Chem 7: 02/25/23 08:14 02/25/23 08:14 Labs: Abnormal Lab Results - Last 24 Hours (Table) 02/24/23 02/24/23 02/25/23 Range/Units 15:54 15:54 08:14 RBC 3.85 L (4.30-5.90) m/uL Hgb 12.2 L (13.0-17.5) gm/dL Hct 36.7 L (39.0-53.0) % Neutrophils # 8.2 H (1.3-7.7) k/uL D-Dimer (<0.60) mg/L FEU Chloride (98-107) mmol/L Glucose (74-99) mg/dL Urine Protein Trace H (Negative) Urine Ketones Trace H (Negative) Urine Blood Small H (Negative) Urine Mucus Rare H (None) /hpf U Marijuana (THC) Screen Detected H (NotDetected) 02/25/23 02/25/23 Range/Units 08:14 08:14 RBC (4.30-5.90) m/uL Hgb (13.0-17.5) gm/dL Hct (39.0-53.0) % Neutrophils # (1.3-7.7) k/uL D-Dimer 1.24 H (<0.60) mg/L FEU Chloride 108 H (98-107) mmol/L Glucose 101 H (74-99) mg/dL Urine Protein (Negative) Urine Ketones (Negative) Urine Blood (Negative) Urine Mucus (None) /hpf U Marijuana (THC) Screen (NotDetected) Assessment and Plan Assessment: * Seizure disorder, presented with a breakthrough seizure. Patient's first seizure was on 12/19/2021, now presenting with a second seizure. * Marijuana use * Hypertension * Hyperlipidemia * History of abdominal aortic aneurysm repair 05/21/2021 * History of stage I colon cancer removed April 2021. Plan: * Patient was taking Keppra 750 mg twice a day. With this breakthrough seizure, we will increase dose to 1000 mg twice a day. * Canceled EEG. * Spoke to patient's on the phone and discussed in detail as above. * Patient informed of [place] state law of no driving unless seizure free for 6 months, climbing ladders, operating dangerous machinery or unsupervised swimming. * Patient currently takes dual antiplatelet medication since his abdominal aortic aneurysm surgery. Patient has an appointment with his cardiothoracic surgeon at [facility] in May 2023. He will discuss about need for continued need for DAPT. * Recommend patient follow with his neurologist outpatient in 1 week. * Neurologically clear for discharge.
--- NOTE | 2023-02-25 13:04 | P.DS ---
Providers Date of admission: 02/24/23 13:14 Expected date of discharge: 02/25/23 Attending physician: Brian Lieberman MD Consults: 02/24/23 13:13 Consult Physician Urgent Consulting Provider: Yolanda Hoffmann Consult Reason/Comments: Seizure Do you want consulting provider notified?: Yes Consult Physician Urgent Consulting Provider: Edwin Villlaobos Consult Reason/Comments: Fall after seizure Do you want consulting provider notified?: Yes Primary care physician: Stated None Hospital Course: Discharge diagnoses; Seizures Acute metabolic encephalopathy History of coronary artery disease History of aortic aneurysm repair Hypertension Hyperlipidemia Hospital course; patient is a 67-year-old gentleman with past medical history significant for coronary artery disease, seizures, aortic aneurysm repair was brought to the ER for confusion with possible seizure. Patient is a resident of [place], who is [facility]. According to family they heard a loud bang this morning coming from patient's room, they initially did not go to check on the patient, and later when they went to check on him and he was standing in the middle of room acting confused. There was evidence of urinary incontinence, no evidence of any tongue biting. Patient was his complaint of being cold, because of possible seizure, patient was brought to the ER. By that time patient came to the ER his confusion improved and he was acting more is normal self Initial lab work done in the ER showed WBC 17.1, hemoglobin 14, platelet count 217, sodium 142, potassium 4, BUN 13, creatinine 1.04, glucose 163 CT head done showed no acute intracranial process CT cervical spine done showed no acute cervical spine fracture Pelvis x-ray showed no acute osseous pathology Chest x-ray done in the ER showed no acute cardiac process Patient Admitted to medicine service 02/25. CT chest done, negative for PE. Neurology evaluated the patient recommended EEG, patient at this time is wanting to be discharged as he is out of town, currently has a neurologist in [place]. Neurology recommended discharging patient on 1000 mg of Keppra twice a day. Patient specifically told that he cannot drive, operate heavy machinery, swim alone for 6 months. PHYSICAL EXAMINATION: GENERAL: The patient is alert and oriented x3, not in any acute distress. Well developed, well nourished. HEENT: Pupils are round and equally reacting to light. EOMI. No scleral icterus. No conjunctival pallor. Normocephalic, atraumatic. No pharyngeal erythema. No thyromegaly. CARDIOVASCULAR: S1 and S2 present. No murmurs, rubs, or gallops. PULMONARY: Chest is clear to auscultation, no wheezing or crackles. ABDOMEN: Soft, nontender, nondistended, normoactive bowel sounds. No palpable organomegaly. MUSCULOSKELETAL: No joint swelling or deformity. EXTREMITIES: No cyanosis, clubbing, or pedal edema. NEUROLOGICAL: Gross neurological examination did not reveal any focal deficits. SKIN: No rashes. Dictation was produced using [employer] dictation software. please excuse any grammatical, word or spelling errors. Patient Condition at Discharge: Good Plan - Discharge Summary New Discharge Prescriptions: New levETIRAcetam [Keppra] 1,000 mg PO BID #30 tab Continue Atorvastatin [Lipitor] 40 mg PO DAILY Omeprazole [PriLOSEC] 20 mg PO DAILY Escitalopram Oxalate [Lexapro] 10 mg PO DAILY Clopidogrel [Plavix] 75 mg PO HS Candesartan Cilexetil [Atacand] 8 mg PO DAILY ARIPiprazole [Abilify] 2.5 mg PO DAILY Metoprolol Succinate [Toprol XL] 100 mg PO BID amLODIPine [Norvasc] 10 mg PO DAILY Aspirin [Adult Low Dose Aspirin EC] 81 mg PO DAILY Discontinued levETIRAcetam [Keppra] 750 mg PO BID Discharge Medication List ARIPiprazole [Abilify] 2.5 mg PO DAILY 02/24/23 [History] Aspirin [Adult Low Dose Aspirin EC] 81 mg PO DAILY 02/24/23 [History] Atorvastatin [Lipitor] 40 mg PO DAILY 02/24/23 [History] Candesartan Cilexetil [Atacand] 8 mg PO DAILY 02/24/23 [History] Clopidogrel [Plavix] 75 mg PO HS 02/24/23 [History] Escitalopram Oxalate [Lexapro] 10 mg PO DAILY 02/24/23 [History] Metoprolol Succinate [Toprol XL] 100 mg PO BID 02/24/23 [History] Omeprazole [PriLOSEC] 20 mg PO DAILY 02/24/23 [History] amLODIPine [Norvasc] 10 mg PO DAILY 02/24/23 [History] levETIRAcetam [Keppra] 1,000 mg PO BID #30 tab 02/25/23 [Rx] Follow up Appointment(s)/Referral(s): None,Stated [Primary Care Provider] - 1-2 days Patient Instructions/Handouts: Seizure/Epilepsy Discharge Instructions & Follow-Up, Diphtheria/Pertussis/Tetanus Vaccine (By injection) Discharge Disposition: HOME SELF-CARE
[2023-02-25 23:23] LABS: Chol/HDL Ratio 3.47 Ratio; LDL Cholesterol,Calculated 73.8 mg/dL (0.0-131.0); VLDL Calculation 13.76 mg/dL (5.00-40.00)
== END 2023-02-25 13:45 | disposition home or self-care (01) ==
LOC: EC 10:04 → 6NMEDSUR 13:14
PROVIDERS: ADMIT Internal Medicine; ATTEND Internal Medicine
DX: G40.909 Epilepsy, unspecified, not intractable, without status epilepticus (principal); G93.41 Metabolic encephalopathy; I25.10 Atherosclerotic heart disease of native coronary artery without angina pectoris; Z86.79 Personal history of other diseases of the circulatory system; I10 Essential (primary) hypertension; E78.5 Hyperlipidemia, unspecified; F17.200 Nicotine dependence, unspecified, uncomplicated; K21.9 Gastro-esophageal reflux disease without esophagitis; D64.9 Anemia, unspecified; S05.12XA Contusion of eyeball and orbital tissues, left eye, initial encounter; S00.01XA Abrasion of scalp, initial encounter; W19.XXXA Unspecified fall, initial encounter; F41.9 Anxiety disorder, unspecified; K57.92 Diverticulitis of intestine, part unspecified, without perforation or abscess without bleeding; Z85.038 Personal history of other malignant neoplasm of large intestine; Z79.82 Long term (current) use of aspirin; Z79.899 Other long term (current) drug therapy; Z88.8 Allergy status to other drugs, medicaments and biological substances
CPT/HCPCS: 96361 ×3; 90471; 96374; 96375; 99285; 36415; 94760; 93005; 86900; 86901; 85379; 80061; 80053 ×2; 80177; 84443; 84484; 85025 ×2; 85610; 85730; 86850; 81001; 80306; 87635; 72170; 71045; 72125; 70450; 71275; 90715; G0378 ×2; G0480; J2405; J1953; Q9967; 80320

== ENCOUNTER 2024-03-10 07:37 | Emergency (ER) | payer MEDICARE, OTHER ==
--- NOTE | 2024-03-10 07:55 | ED ---
General Adult HPI - General Stated complaint: Seizure Time Seen by Provider: 03/10/24 07:40 Source: patient, RN notes reviewed, old records reviewed - History of Present Illness Initial comments: This is a 68-year-old male who has a past medical history significant for aortic aneurysm repair and a history of seizures. According to the director of cardiac rehabilitation the patient has seizures which consist of him being confused combative and walking around. Patient was given 5 of Versed IM and 5 of Versed IV. Patient is unable to give any history at this time but according to the paramedics the stated he did drink last evening. The is not currently here send no further history is available at this time - Related Data Home Medications Medication Instructions Recorded Confirmed Aspirin [Adult Low Dose Aspirin EC] 81 mg PO DAILY 02/24/23 03/10/24 Metoprolol Succinate [Toprol XL] 100 mg PO BID 02/24/23 03/10/24 Omeprazole [PriLOSEC] 20 mg PO DAILY 02/24/23 03/10/24 amLODIPine [Norvasc] 10 mg PO DAILY 02/24/23 03/10/24 Atorvastatin [Lipitor] 80 mg PO DAILY 03/10/24 03/10/24 Cholecalciferol (Vitamin D3) 50 mcg PO DAILY 03/10/24 03/10/24 [Vitamin D3 (50 Mcg = 2000 Iu)] Fluticasone Nasal [place] [Flonase 1 spray EA NOSTRIL DAILY 03/10/24 03/10/24 Nasal [place]] Folic Acid 1 mg PO DAILY 03/10/24 03/10/24 Furosemide [Lasix] 20 mg PO DAILY 03/10/24 03/10/24 Lacosamide [Vimpat] 150 mg PO BID 03/10/24 03/10/24 Mupirocin 2% Oint [Bactroban 2% 1 applic TOPICAL BID 03/10/24 03/10/24 Oint] Pregabalin [Lyrica] 50 mg PO BID 03/10/24 03/10/24 Sertraline [Zoloft] 50 mg PO DAILY 03/10/24 03/10/24 Spironolactone [Aldactone] 25 mg PO DAILY 03/10/24 03/10/24 Triamcinolone 0.1% Cream [Kenalog 1 applicatio TOPICAL BID 03/10/24 03/10/24 0.1% Cream] Allergies Allergy/AdvReac Type Severity Reaction Status Date / Time lisinopril Allergy Anaphylaxis Verified 03/10/24 08:20 Review of Systems ROS Statement: Those systems with pertinent positive or pertinent negative responses have been documented in the HPI. ROS Other: All systems not noted in ROS Statement are negative. Past Medical History Past Medical History: GERD/Reflux, Hypertension Additional Past Medical History / Comment(s): AAA History of Any Multi-Drug Resistant Organisms: None Reported Past Surgical History: No Surgical Hx Reported Past Psychological History: Anxiety Smoking Status: Current every day smoker Past Alcohol Use History: Daily Past Drug Use History: Marijuana General Exam - General Exam Comments Initial Comments: GENERAL: Patient is well-developed and well-nourished. Patient is nontoxic and well- hydrated and is in no acute distress. ENT: Neck is soft and supple. No significant lymphadenopathy is noted. Oropharynx is clear. Moist mucous membranes. Neck has full range of motion without eliciting any pain. EYES: The sclera were anicteric and conjunctiva were pink and moist. Extraocular movements were intact and pupils were equal round and reactive to light. Eyelids were unremarkable. PULMONARY: Unlabored respirations. Good breath sounds bilaterally. No audible rales rho nchi or wheezing was noted. CARDIOVASCULAR: There is a regular rate and rhythm without any murmurs gallops or rubs. ABDOMEN: Soft and nontender with normal bowel sounds. SKIN: Skin is clear with no lesions or rashes and otherwise unremarkable. NEUROLOGIC: Patient is awake but not oriented. Cranial nerves II through XII are grossly intact. Unable to assess motor and sensory since patient is only awake but is not oriented MUSCULOSKELETAL: Appears the patient has full range of motion of his extremities. LYMPHATICS: No significant lymphadenopathy is noted PSYCHIATRIC: Unable to assess Course Vital Signs 03/10/24 03/10/24 03/10/24 07:47 08:30 09:00 Temperature 98.4 F Pulse Rate 80 73 65 Respiratory 20 20 17 Rate Blood Pressure 147/95 138/80 135/80 O2 Sat by Pulse 96 96 96 Oximetry 03/10/24 09:30 Temperature Pulse Rate 66 Respiratory 18 Rate Blood Pressure 128/60 O2 Sat by Pulse 96 Oximetry Medical Decision Making - Medical Decision Making Was pt. sent in by a medical professional or institution (, PA, PLAY READER, urgent care, hospital, or fpc...) When possible be specific @ -No Did you speak to anyone other than the patient for history (EMS, parent, family, police, friend...)? What history was obtained from this source @ -Patient is postictal and therefore the gave all of the history as the EMS contribute their portion Did you review nursing and triage notes (agree or disagree)? Why? @ -I reviewed and agree with nursing and triage notes Were old charts reviewed (outside hosp., previous admission, EMS record, old EKG, old radiological studies, urgent care reports/EKG's, fpc records)? Report findings @ -No old charts were reviewed Differential Diagnosis? @ -Differential Seizure: Recurrent seizure disorder, febrile seizure, alcohol withdrawal, stimulants, meningitis, encephalitis, intercranial hemorrhage, intracranial tumor, stroke, eclampsia, thyrotoxicosis, hypocalcemia, hyponatremia, hypernatremia, hypomagnesemia, psychogenic, this is not meant to be an all-inclusive list. EKG interpreted by me (3pts min.). @ -As above X-rays interpreted by me (1pt min.). @ -None done CT interpreted by me (1pt min.). @ -None done U/S interpreted by me (1pt. min.). @ -None done What testing was considered but not performed or refused? (CT, X-rays, U/S, labs)? Why? @ -None What meds were considered but not given or refused? Why? @ -None Did you discuss the management of the patient with other professionals (professionals i.e. , PA, PLAY READER, lab, RT, psych nurse, health care social worker, agricultural extension educator, teacher, residential care officer, social work case manager)? Give summary @ -No Was smoking cessation discussed for >3mins.? @ -No Was critical care preformed (if so, how long)? @ -No Were there social determinants of health that impacted care today? How? (Homelessness, low income, unemployed, alcoholism, drug addiction, transp ortation, low edu. Level, literacy, decrease access to med. care, group home, rehab)? @ -No Was there de-escalation of care discussed even if they declined (Discuss DNR or withdrawal of care, Hospice)? DNR status @ -No What co-morbidities impacted this encounter? (DM, HTN, Smoking, COPD, CAD, Cancer, CVA, ARF, Chemo, Hep., AIDS, mental health diagnosis, sleep apnea, morbid obesity)? @ -None Was patient admitted / discharged? Hospital course, mention meds given and route, prescriptions, significant lab abnormalities, going to OR and other pertinent info. @ -Patient slowly came around to his baseline and he was alert and oriented x 4 and was able to ambulate without problem. Patient took his home medicines which included the Vimpat. Patient did drink quite a bit last night according to his and that is atypical for him. Undiagnosed new problem with uncertain prognosis? @ -No Drug Therapy requiring intensive monitoring for toxicity (Heparin, Nitro, Insulin, Cardizem)? @ -No Were any procedures done? @ -No Diagnosis/symptom? @ -Seizure Acute, or Chronic, or Acute on Chronic? @ -Acute Uncomplicated (without systemic symptoms) or Complicated (systemic symptoms)? @ -Complicated Side effects of treatment? @ -No Exacerbation, Progression, or Severe Exacerbation? @ -No Poses a threat to life or bodily function? How? (Chest pain, USA, VT, pneumonia, PE, COPD, DKA, ARF, appy, cholecystitis, CVA, Diverticulitis, Homicidal, Suicidal, threat to staff... and all critical care pts) @ -No - Lab Data Result diagrams: 03/10/24 08:07 03/10/24 08:07 Lab Results 03/10/24 03/10/24 Range/Units 08:07 08:07 WBC 14.8 H (3.8-10.6) k/uL RBC 4.06 L (4.30-5.90) m/uL Hgb 13.7 (13.0-17.5) gm/dL Hct 40.5 (39.0-53.0) % MCV 99.6 (80.0-100.0) fL MCH 33.7 (25.0-35.0) pg MCHC 33.9 (31.0-37.0) g/dL RDW 14.1 (11.5-15.5) % Plt Count 219 (150-450) k/uL MPV 8.2 Neutrophils % 85 % Lymphocytes % 9 % Monocytes % 5 % Eosinophils % 1 % Basophils % 0 % Neutrophils # 12.7 H (1.3-7.7) k/uL Lymphocytes # 1.3 (1.0-4.8) k/uL Monocytes # 0.7 (0-1.0) k/uL Eosinophils # 0.1 (0-0.7) k/uL Basophils # 0.1 (0-0.2) k/uL Sodium 138 (137-145) mmol/L Potassium 4.4 (3.5-5.1) mmol/L Chloride 107 (98-107) mmol/L Carbon Dioxide 26 (22-30) mmol/L Anion Gap 5 mmol/L BUN 16 (9-20) mg/dL Creatinine 0.84 (0.66-1.25) mg/dL Est GFR (CKD-EPI)AfAm >90 (>60 ml/min/1.73 sqM) Est GFR (CKD-EPI)NonAf >90 (>60 ml/min/1.73 sqM) Glucose 118 H (74-99) mg/dL Calcium 8.8 (8.4-10.2) mg/dL Magnesium 1.9 (1.6-2.3) mg/dL Total Bilirubin 0.6 (0.2-1.3) mg/dL AST 26 (17-59) U/L ALT 29 (4-49) U/L Alkaline Phosphatase 83 (38-126) U/L Total Protein 6.6 (6.3-8.2) g/dL Albumin 4.0 (3.5-5.0) g/dL Serum Alcohol <10 mg/dL Disposition Clinical Impression: Generalized seizure Disposition: HOME SELF-CARE Condition: Good Instructions (If sedation given, give patient instructions): Seizure/Epilepsy Discharge Instructions & Follow-Up Additional Instructions: Patient should not be drinking alcohol Is patient prescribed a controlled substance at d/c from ED?: No Referrals: None,Stated [Primary Care Provider] - 1-2 days Time of Disposition: 10:28
[2024-03-10] MEDS: SODIUM CHLORIDE 0.9% 1,000 ML IV ONE (08:14)
[2024-03-10 08:23] LABS: Basophils # (A) 0.1 k/uL (0-0.2); Basophils % (A) 0 %; Eosinophils # (A) 0.1 k/uL (0-0.7); Eosinophils % (A) 1 %; HCT 40.5 % (39.0-53.0); HGB 13.7 gm/dL (13.0-17.5); Lymphocytes # (A) 1.3 k/uL (1.0-4.8); Lymphocytes % (A) 9 %; MCH 33.7 pg (25.0-35.0); MCHC 33.9 g/dL (31.0-37.0); MCV 99.6 fL (80.0-100.0); Mean Platelet Volume 8.2; Monocytes # (A) 0.7 k/uL (0-1.0); Monocytes % (A) 5 %; Neutrophils # (A) 12.7 k/uL (1.3-7.7); Neutrophils % (A) 85 %; Platelet Count 219 k/uL (150-450); RBC 4.06 m/uL (4.30-5.90); RDW 14.1 % (11.5-15.5); WBC 14.8 k/uL (3.8-10.6)
[2024-03-10] MEDS: ONDANSETRON 4 MG/2 ML VIAL IVP STA (08:42)
[2024-03-10 08:48] LABS: ALT 29 U/L (4-49); AST 26 U/L (17-59); African American GFR (CKD) >90 (>60 ml/min/1.73 sqM); Alcohol <10 mg/dL; Alkaline Phosphatase 83 U/L (38-126); Anion Gap 5 mmol/L; Blood Urea Nitrogen 16 mg/dL (9-20); Calcium 8.8 mg/dL (8.4-10.2); Carbon Dioxide 26 mmol/L (22-30); Chloride 107 mmol/L (98-107); Glucose 118 mg/dL (74-99); Magnesium 1.9 mg/dL (1.6-2.3); Non-African American GFR(CKD) >90 (>60 ml/min/1.73 sqM); Potassium 4.4 mmol/L (3.5-5.1); Sodium 138 mmol/L (137-145); Total Bilirubin 0.6 mg/dL (0.2-1.3); Total Protein 6.6 g/dL (6.3-8.2)
[2024-03-10 10:49] VITALS: BP 133/69; PULSE 71; RESP 14; TEMP 98.3
== END 2024-03-10 10:46 | disposition home or self-care (01) ==
LOC: EC 07:37
CPT/HCPCS: 36415; 80053; 80320; 83735; 85025; 96361; 96374; 99284